=== PATIENT | female | born 1960 | race Caucasian/White ===

== ENCOUNTER → 2018-09-06 | Outpatient (CLI) | payer BC, OTHER ==
[~2018-09-06] MED LIST: ADVIL PM CAPLE1 EACH PO; IBUPROFEN 600600 M1 PO; NORCO 5-325 TA1 EACH PO; PEPCID20 MG PO; ZOFRAN 4 MG ORAL4 MG PO; ZOFRAN ODT4 MG PO
== END ==
LOC: RAD 14:54
DX: Z12.31 Encounter for screening mammogram for malignant neoplasm of breast (principal)

== ENCOUNTER → 2021-02-26 | Outpatient (CLI) | payer BC, OTHER | LOC: BC 12:55 | PROVIDERS: ATTEND Obstetrics & Gynecology | DX: Z12.31 Encounter for screening mammogram for malignant neoplasm of breast (principal) ==